=== PATIENT | female | born 1985 | race Caucasian/White ===

== ENCOUNTER → 2022-05-28 | Day surgery (SDC) | payer MEDICARE, MEDICAID ==
[~2022-05-28] MED LIST: ADMIXTURE FEE IVPB SCH; GAMMAGARD IVPB SCH; GLY IVPB SCH; IGA OV50 IVPB SCH; IMMUN GLOB IVPB SCH; diphenhydrAMINE 50 MG/ML VIAL ONE
[2022-05-28 13:41] LABS: #Monocytes 0.3 10x3/uL (0.0-1.1); #Neutrophils 4.8 10x3/uL (1.5-8.4); %Basophils 0.4 % (0.0-2.0); %Eosinophils 0.4 % (0.0-6.0); %Lymphocytes 26.3 % (18.0-47.0); %Monocytes 4.1 % (0.0-10.0); Hemoglobin 11.5 g/dL (12.0-15.5); Mean Corpuscular HGB CONC 34.3 g/dL (32.0-36.0); Mean Corpuscular Hemoglobin 32.8 pg (27.0-33.0); Mean Corpuscular Volume 95.4 fl (81.6-98.3); Mean Platelet Volume 9.3 fl (7.4-10.4); Platelet Count 284 10x3/uL (150-450); RBC Distribution Width 14.9 % (11.5-14.5); Red Blood Cell (RBC) Count 3.51 10x6/uL (3.90-5.03); White Blood Cell (WBC) Count 7.1 10x3/uL (3.5-10.5)
== END ==
LOC: CSHSDC/OP 08:57
PROVIDERS: ATTEND Allergy & Immunology
DX: D83.9 Common variable immunodeficiency, unspecified (principal); D35.2 Benign neoplasm of pituitary gland; J32.9 Chronic sinusitis, unspecified; K21.9 Gastro-esophageal reflux disease without esophagitis
CPT/HCPCS: 82787; 85025; J1569; 36415; J1200

== ENCOUNTER → 2022-06-27 | Day surgery (SDC) | payer MEDICARE, MEDICAID ==
[~2022-06-27] MED LIST changes: -diphenhydrAMINE 50 MG/ML VIAL ONE
== END ==
LOC: CSHSDC 10:45
PROVIDERS: ATTEND Allergy & Immunology
DX: D83.9 Common variable immunodeficiency, unspecified (principal); J32.9 Chronic sinusitis, unspecified; K21.9 Gastro-esophageal reflux disease without esophagitis; D35.2 Benign neoplasm of pituitary gland; Z79.899 Other long term (current) drug therapy
CPT/HCPCS: J1569 ×2

== ENCOUNTER → 2022-08-01 | Day surgery (SDC) | payer MEDICARE, MEDICAID ==
[~2022-08-01] MED LIST changes: +EPINEPHrine 1 MG/ML AMP IM PRN; +diphenhydrAMINE 50 MG/ML VIAL IVP PRN
[2022-08-01 16:13] LABS: #Eosinphils 0.1 10x3/uL (0.0-0.5); #Monocytes 0.3 10x3/uL (0.0-1.1); %Basophils 0.4 % (0.0-2.0); %Eosinophils 1.5 % (0.0-6.0); %Lymphocytes 22.9 % (18.0-47.0); %Monocytes 3.6 % (0.0-10.0); %Neutrophils 69.5 % (40.0-75.0); Hemoglobin 10.3 g/dL (12.0-15.5); Mean Corpuscular HGB CONC 34.3 g/dL (32.0-36.0); Mean Corpuscular Hemoglobin 34.3 pg (27.0-33.0); Mean Platelet Volume 8.7 fl (7.4-10.4); Platelet Count 412 10x3/uL (150-450); RBC Distribution Width 15.1 % (11.5-14.5); White Blood Cell (WBC) Count 7.2 10x3/uL (3.5-10.5)
== END ==
LOC: CSHSDC/OP 09:27
PROVIDERS: ATTEND Allergy & Immunology
DX: D83.9 Common variable immunodeficiency, unspecified (principal); K21.9 Gastro-esophageal reflux disease without esophagitis; J32.9 Chronic sinusitis, unspecified; D35.2 Benign neoplasm of pituitary gland
CPT/HCPCS: 82784; 85025; J1569 ×2; J1642

== ENCOUNTER → 2022-08-30 | Day surgery (SDC) | payer MEDICARE, MEDICAID ==
[~2022-08-30] MED LIST changes: -EPINEPHrine 1 MG/ML AMP IM PRN; -diphenhydrAMINE 50 MG/ML VIAL IVP PRN
== END ==
LOC: CSHSDC/OP 08:51
PROVIDERS: ATTEND Allergy & Immunology
DX: D83.9 Common variable immunodeficiency, unspecified (principal); D35.2 Benign neoplasm of pituitary gland
CPT/HCPCS: J1569 ×2; J1642

== ENCOUNTER → 2022-09-19 | Day surgery (SDC) | payer MEDICARE, MEDICAID ==
[2022-09-19 10:32] LABS: #Eosinphils 0.1 10x3/uL (0.0-0.5); #Monocytes 0.3 10x3/uL (0.0-1.1); #Neutrophils 5.1 10x3/uL (1.5-8.4); %Basophils 0.5 % (0.0-2.0); %Eosinophils 1.4 % (0.0-6.0); %Lymphocytes 29.9 % (18.0-47.0); %Monocytes 3.4 % (0.0-10.0); Hemoglobin 12.2 g/dL (12.0-15.5); Mean Corpuscular HGB CONC 33.7 g/dL (32.0-36.0); Mean Corpuscular Hemoglobin 32.7 pg (27.0-33.0); Mean Corpuscular Volume 97.1 fl (81.6-98.3); Mean Platelet Volume 9.6 fl (7.4-10.4); Platelet Count 372 10x3/uL (150-450); RBC Distribution Width 13.5 % (11.5-14.5); Red Blood Cell (RBC) Count 3.73 10x6/uL (3.90-5.03)
== END ==
LOC: CSHSDC 09:16
PROVIDERS: ATTEND Allergy & Immunology
DX: C75.1 Malignant neoplasm of pituitary gland (principal); J32.9 Chronic sinusitis, unspecified; K21.9 Gastro-esophageal reflux disease without esophagitis
CPT/HCPCS: 82784; 85025; J1569 ×2; J1642

== ENCOUNTER → 2022-10-10 | Day surgery (SDC) | payer MEDICARE, MEDICAID | LOC: CSHSDC/OP 09:30 | PROVIDERS: ATTEND Allergy & Immunology | DX: D83.9 Common variable immunodeficiency, unspecified (principal) | CPT/HCPCS: J1569 ×2 ==

== ENCOUNTER → 2022-10-31 | Day surgery (SDC) | payer MEDICARE, MEDICAID | LOC: CSHSDC/OP 08:19 | PROVIDERS: ATTEND Allergy & Immunology | DX: D83.9 Common variable immunodeficiency, unspecified (principal); J32.9 Chronic sinusitis, unspecified; K21.9 Gastro-esophageal reflux disease without esophagitis | CPT/HCPCS: 82784; J1569 ×2; J1642 ==

== ENCOUNTER 2022-11-20 09:09 | Outpatient (CLI) | payer MEDICARE, MEDICAID ==
[2022-11-20] MEDS ORDERED: GLY IVPB SCH (10:00)
[2022-11-20] MEDS ORDERED: IMMUN GLOB IVPB SCH (10:00)
[2022-11-20] MEDS ORDERED: IGA OV50 IVPB SCH (10:00)
[2022-11-20] MEDS ORDERED: ADMIXTURE FEE IVPB SCH (10:00)
[2022-11-20] MEDS ORDERED: GAMMAGARD IVPB SCH (10:00)
== END 2022-11-20 15:20 | disposition home or self-care (01) ==
LOC: CSHSDC/OP 09:09
PROVIDERS: ATTEND Allergy & Immunology
DX: D83.9 Common variable immunodeficiency, unspecified (principal)
CPT/HCPCS: J1569 ×2; J1642

== ENCOUNTER 2023-02-13 09:21 | Day surgery (SDC) | payer MEDICARE, MEDICAID ==
[2023-02-13] MEDS ORDERED: Sodium Chloride 0.9% 1,000 ML IV SCH (09:30)
[2023-02-13] MEDS ORDERED: IGA OV50 IVPB SCH (09:30)
[2023-02-13] MEDS ORDERED: GAMMAGARD IVPB SCH (09:30)
[2023-02-13] MEDS ORDERED: GLY IVPB SCH (09:30)
[2023-02-13] MEDS ORDERED: ADMIXTURE FEE IVPB SCH (09:30)
[2023-02-13] MEDS ORDERED: diphenhydrAMINE 25 MG CAP PO SCH (09:30)
[2023-02-13] MEDS ORDERED: IMMUN GLOB IVPB SCH (09:30)
[2023-02-13] MEDS ORDERED: diphenhydrAMINE 25 MG CAP ONE (09:32)
[2023-02-13] MEDS ORDERED: EPINEPHrine 1 MG/ML AMP IM PRN (09:37)
[2023-02-13] MEDS ORDERED: diphenhydrAMINE 50 MG/ML VIAL IVP PRN (09:38)
== END 2023-02-13 15:00 | disposition home or self-care (01) ==
LOC: CSHSDC/OP 09:21
PROVIDERS: ATTEND Allergy & Immunology
DX: D83.9 Common variable immunodeficiency, unspecified (principal)
CPT/HCPCS: J1569 ×2; J1642

== ENCOUNTER 2023-03-07 09:08 | Day surgery (SDC) | payer MEDICARE, MEDICAID ==
[2023-03-07] MEDS ORDERED: IMMUN GLOB IVPB SCH (09:30)
[2023-03-07] MEDS ORDERED: GAMMAGARD IVPB SCH (09:30)
[2023-03-07] MEDS ORDERED: IGA OV50 IVPB SCH (09:30)
[2023-03-07] MEDS ORDERED: GLY IVPB SCH (09:30)
[2023-03-07] MEDS ORDERED: [UNRECOGNIZED DRUG - OTHER] IVPB SCH (09:30)
== END 2023-03-07 15:00 | disposition home or self-care (01) ==
LOC: CSHSDC/OP 09:08
PROVIDERS: ATTEND Allergy & Immunology
DX: D83.9 Common variable immunodeficiency, unspecified (principal); E23.6 Other disorders of pituitary gland; K21.9 Gastro-esophageal reflux disease without esophagitis; J32.9 Chronic sinusitis, unspecified; Z79.899 Other long term (current) drug therapy
CPT/HCPCS: J1569 ×2; J1642

== ENCOUNTER 2023-03-26 08:47 | Day surgery (SDC) | payer MEDICARE, MEDICAID ==
[2023-03-26] MEDS ORDERED: GLY IVPB SCH (09:00)
[2023-03-26] MEDS ORDERED: GAMMAGARD IVPB SCH (09:00)
[2023-03-26] MEDS ORDERED: IGA OV50 IVPB SCH (09:00)
[2023-03-26] MEDS ORDERED: [UNRECOGNIZED DRUG - OTHER] IVPB SCH (09:00)
[2023-03-26] MEDS ORDERED: IMMUN GLOB IVPB SCH (09:00)
== END 2023-03-26 14:25 | disposition home or self-care (01) ==
LOC: CSHSDC/OP 08:47
PROVIDERS: ATTEND Allergy & Immunology
DX: D83.9 Common variable immunodeficiency, unspecified (principal); E23.6 Other disorders of pituitary gland; K21.9 Gastro-esophageal reflux disease without esophagitis; J32.9 Chronic sinusitis, unspecified; Z79.899 Other long term (current) drug therapy
CPT/HCPCS: J1569 ×2; J1642

== ENCOUNTER → 2023-04-15 | Day surgery (SDC) | payer MEDICARE, MEDICAID ==
[~2023-04-15] MED LIST changes: -ADMIXTURE FEE IVPB SCH; -GLY IVPB SCH; -IGA OV50 IVPB SCH; -IMMUN GLOB IVPB SCH
== END ==
LOC: CSHSDC/OP 09:07
PROVIDERS: ATTEND Allergy & Immunology
DX: D83.9 Common variable immunodeficiency, unspecified (principal); J32.9 Chronic sinusitis, unspecified; K21.9 Gastro-esophageal reflux disease without esophagitis; Z88.1 Allergy status to other antibiotic agents; Z88.2 Allergy status to sulfonamides; Z88.6 Allergy status to analgesic agent
CPT/HCPCS: 96365; 96366; J1569; J1642

== ENCOUNTER 2023-05-08 09:22 | Outpatient (CLI) | payer MEDICARE, MEDICAID ==
[2023-05-08] MEDS ORDERED: IMMUNE GLOBULIN IVPB SCH (10:15)
[2023-05-08] MEDS ORDERED: GAMMAGARD IVPB SCH (10:15)
== END 2023-05-08 09:23 | disposition home or self-care (01) ==
LOC: CSHRAD 09:22
PROVIDERS: ATTEND Allergy & Immunology
DX: D83.9 Common variable immunodeficiency, unspecified (principal)
CPT/HCPCS: 96365; 96366; 96374; J1569 ×2; J1642

== ENCOUNTER 2023-05-27 09:02 | Day surgery (SDC) | payer MEDICARE, MEDICAID ==
[2023-05-27] MEDS ORDERED: GAMMAGARD IVPB SCH (09:45)
[2023-05-27] MEDS ORDERED: IMMUNE GLOBULIN IVPB SCH (09:45)
== END 2023-05-27 14:30 | disposition home or self-care (01) ==
LOC: CSHSDC 09:02
PROVIDERS: ATTEND Allergy & Immunology
DX: D83.9 Common variable immunodeficiency, unspecified (principal); D35.2 Benign neoplasm of pituitary gland
CPT/HCPCS: J1569 ×2; 96365; 96366; J1642

== ENCOUNTER → 2023-06-20 | Day surgery (SDC) | payer MEDICARE ==
[~2023-06-20] MED LIST changes: +ADMIXTURE FEE IVPB SCH; +IMMUNE GLOBULIN IVPB SCH; +diphenhydrAMINE 25 MG CAP ONE
== END ==
LOC: CSHSDC/OP 08:22
PROVIDERS: ATTEND Family Medicine
DX: D83.9 Common variable immunodeficiency, unspecified (principal); D35.2 Benign neoplasm of pituitary gland
CPT/HCPCS: J1569 ×2; J1642

== ENCOUNTER 2023-08-06 09:16 | Day surgery (SDC) | payer MEDICARE, MEDICAID ==
[2023-08-06] MEDS ORDERED: IMMUNE GLOBULIN IVPB SCH ×2 (09:28→09:30)
[2023-08-06] MEDS ORDERED: diphenhydrAMINE 25 MG CAP ONE (09:28)
[2023-08-06] MEDS ORDERED: GAMMAGARD IVPB SCH ×2 (09:28→09:30)
== END 2023-08-06 15:00 | disposition home or self-care (01) ==
LOC: CSHSDC 09:16
PROVIDERS: ATTEND Allergy & Immunology
DX: D83.9 Common variable immunodeficiency, unspecified (principal); D35.2 Benign neoplasm of pituitary gland; J32.9 Chronic sinusitis, unspecified; K21.9 Gastro-esophageal reflux disease without esophagitis; Z88.1 Allergy status to other antibiotic agents; Z88.2 Allergy status to sulfonamides; Z88.6 Allergy status to analgesic agent
CPT/HCPCS: J1569 ×2; J1642

== ENCOUNTER 2023-08-26 09:22 | Day surgery (SDC) | payer MEDICARE, MEDICAID ==
[2023-08-26] MEDS ORDERED: GAMMAGARD IVPB SCH (09:30)
[2023-08-26] MEDS ORDERED: IMMUNE GLOBULIN IVPB SCH (09:30)
== END 2023-08-26 14:20 | disposition home or self-care (01) ==
LOC: CSHSDC/OP 09:22
PROVIDERS: ATTEND Allergy & Immunology
DX: D83.9 Common variable immunodeficiency, unspecified (principal); F17.210 Nicotine dependence, cigarettes, uncomplicated; Z88.8 Allergy status to other drugs, medicaments and biological substances; Z88.6 Allergy status to analgesic agent; Z88.2 Allergy status to sulfonamides
CPT/HCPCS: J1569 ×2; J1642

== ENCOUNTER 2023-11-18 09:01 | Day surgery (SDC) | payer MEDICARE, MEDICAID ==
[2023-11-18] MEDS ORDERED: IMMUNE GLOBULIN IVPB SCH (09:15)
[2023-11-18] MEDS ORDERED: GAMMAGARD IVPB SCH (09:15)
== END 2023-11-18 14:10 | disposition home or self-care (01) ==
LOC: CSHSDC 09:01
PROVIDERS: ATTEND Allergy & Immunology
DX: D83.9 Common variable immunodeficiency, unspecified (principal); J32.9 Chronic sinusitis, unspecified; K21.9 Gastro-esophageal reflux disease without esophagitis; D35.2 Benign neoplasm of pituitary gland; Z88.1 Allergy status to other antibiotic agents; Z88.2 Allergy status to sulfonamides; Z88.6 Allergy status to analgesic agent
CPT/HCPCS: J1569 ×2; J1642

== ENCOUNTER 2023-12-16 09:14 | Day surgery (SDC) | payer MEDICARE, MEDICAID ==
[2023-12-16] MEDS ORDERED: GAMMAGARD IVPB SCH (10:00)
[2023-12-16] MEDS ORDERED: IMMUNE GLOBULIN IVPB SCH (10:00)
== END 2023-12-16 15:05 | disposition home or self-care (01) ==
LOC: CSHSDC 09:14
PROVIDERS: ATTEND Allergy & Immunology
DX: D83.9 Common variable immunodeficiency, unspecified (principal); Z88.1 Allergy status to other antibiotic agents; Z88.6 Allergy status to analgesic agent; Z88.2 Allergy status to sulfonamides
CPT/HCPCS: J1569 ×2; J1642